=== PATIENT | female | born 1975 | race Caucasian/White ===

== ENCOUNTER 2016-12-25 18:56 | Emergency (ER) | payer MEDICARE, MEDICAID ==
[~2016-12-25 18:56] MED LIST: DEMEROL50 MG PO; IBUPROFEN600 MG PO; MULTIPLE VITAMI1 TA1
== END 2016-12-25 19:13 | disposition left against medical advice (07) ==
LOC: D.ER 18:56
DX: Z02.9 Encounter for administrative examinations, unspecified (principal)

== ENCOUNTER 2018-03-08 08:00 | Outpatient (CLI) | payer MEDICARE ==
[2015-12-03 00:22] VITALS: BMI 31.2
== END 2018-03-08 12:04 | disposition home or self-care (01) ==
LOC: D.MAMMO 08:00
DX: Z12.31 Encounter for screening mammogram for malignant neoplasm of breast (principal)

== ENCOUNTER 2018-03-31 16:12 | Emergency (ER) | payer MEDICARE ==
[2015-12-03 00:22] VITALS: BMI 31.2
== END 2018-03-31 16:50 | disposition left against medical advice (07) ==
LOC: D.ER 16:12
DX: R22.43 Localized swelling, mass and lump, lower limb, bilateral (principal)

== ENCOUNTER 2018-03-31 18:20 | Emergency (ER) | payer MEDICARE ==
[~2018-03-31] VITALS: Ht 193 cm; Wt 120.5 kg
[2018-03-31 18:54] VITALS: BP 115/59; Ht 193 cm; Wt 120.5 kg
== END 2018-03-31 21:34 | disposition left against medical advice (07) ==
LOC: D.ER 18:20
DX: R22.43 Localized swelling, mass and lump, lower limb, bilateral (principal)

== ENCOUNTER 2018-03-31 23:52 | Emergency (ER) | payer MEDICARE ==
[2018-03-31 18:54] VITALS: BMI 32.3
== END 2018-04-01 00:28 | disposition left against medical advice (07) ==
LOC: D.ER 23:52
DX: R22.43 Localized swelling, mass and lump, lower limb, bilateral (principal)

== ENCOUNTER 2018-09-18 23:23 | Emergency (ER) | payer MEDICARE ==
[~2018-09-18] VITALS: Ht 193 cm; Wt 100.0 kg
[2018-09-18 23:35] VITALS: Ht 193 cm; Wt 100.0 kg
[2018-09-19] MEDS ORDERED: TYLENOL W/CODEI1 TAB PO (00:25)
[2018-09-19 00:36] VITALS: BP 148/88
== END 2018-09-19 00:40 | disposition home or self-care (01) ==
LOC: D.ER 23:23
DX: S90.212A Contusion of left great toe with damage to nail, initial encounter (principal); X58.XXXA Exposure to other specified factors, initial encounter; Y93.89 Activity, other specified; Y92.89 Other specified places as the place of occurrence of the external cause

== ENCOUNTER 2018-09-27 19:34 | Emergency (ER) | payer MEDICARE ==
[~2018-09-27] VITALS: Ht 193 cm; Wt 117.3 kg
[~2018-09-27 19:34] MED LIST changes: +TYLENOL W/CODEI1 TAB PO
[2018-09-27 19:48] VITALS: Ht 193 cm; Wt 117.3 kg
[2018-09-27] MEDS ORDERED: TORADOL10 MG PO (21:39)
[2018-09-27 21:53] VITALS: BP 142/83
== END 2018-09-27 21:53 | disposition home or self-care (01) ==
LOC: D.ER 19:34
DX: L03.032 Cellulitis of left toe (principal)

== ENCOUNTER → 2019-10-18 21:08 | Outpatient (CLI) | payer MEDICARE ==
[2018-09-27 19:48] VITALS: BMI 31.4
[~2019-10-18 21:08] MED LIST changes: +TORADOL10 MG PO
== END | disposition home or self-care (01) ==
LOC: D.MAMMO 16:00
PROVIDERS: ATTEND Nurse Practitioner Family
DX: Z12.31 Encounter for screening mammogram for malignant neoplasm of breast (principal)

== ENCOUNTER 2019-12-27 23:34 | Emergency (ER) | payer MEDICARE, MEDICAID ==
[~2019-12-27] VITALS: Ht 193 cm; Wt 126.4 kg
[2019-12-27 23:51] VITALS: Ht 193 cm; Wt 126.4 kg
[2019-12-27] MEDS ORDERED: LIORESAL 10 MG10 MG PO (23:53)
[2019-12-28] MEDS ORDERED: CLOTRIM ANTIFUN15 GM TOPICAL (00:29)
[2019-12-28 00:39] VITALS: BP 123/72
== END 2019-12-28 00:40 | disposition home or self-care (01) ==
LOC: D.ER 23:34
DX: B35.9 Dermatophytosis, unspecified (principal)

== ENCOUNTER → 2020-07-15 14:49 | Outpatient (CLI) | payer MEDICARE, MEDICAID ==
[2019-12-27 23:51] VITALS: BMI 33.9
[~2020-07-15 14:49] MED LIST changes: +CLOTRIM ANTIFUN15 GM TOPICAL; +LIORESAL 10 MG10 MG PO
== END | disposition home or self-care (01) ==
LOC: D.RAD 14:49
PROVIDERS: ATTEND Orthopaedic Surgery
DX: S83.231A Complex tear of medial meniscus, current injury, right knee, initial encounter (principal)